=== PATIENT | male | born 1975 | race Caucasian/White ===

== ENCOUNTER 2018-05-09 13:01 | Emergency (ER) | payer BC ==
[2018-05-09 13:33] VITALS: BP 120/84
--- NOTE | 2018-05-09 13:49 | UC ---
Abdominal Pain Male HPI - HPI Summary HPI Summary: FOR ABOUT ONE MONTH, RIGHT LOWER ABD COMPLAINT. STATES IT IS NOT REALLY PAINFUL BUT HE THINKS HE CAN FEEL A LUMP IN THE AREA. NO TESTICULAR PAIN. 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 - History of Current Complaint Chief Complaint: UCAbdominalPain Stated Complaint: RT SIDE ABD PAIN X 1 MONTH Time Seen by Provider: 05/09/18 13:41 Hx Obtained From: Patient Onset/Duration: Sudden Onset, Lasting Weeks Timing: Intermittent Episodes Lasting: Severity Initially: Mild Severity Currently: None Pain Intensity: 0 Location: Discrete At: RLQ Radiates: No Character: Not Applicable - does not describe it as pain. - Allergies/Home Medications Allergies/Adverse Reactions: Allergies Allergy/AdvReac Type Severity Reaction Status Date / Time nut - unspecified Allergy Severe Anaphylatic Verified 05/09/18 13:27 Shock Home Medications: Home Medications NK [No Home Medications Reported] 05/09/18 [History Confirmed 05/09/18] PMH/Surg Hx/FS Hx/Imm Hx Previously Healthy: Yes - Surgical History Surgical History: None - Family History Known Family History: Positive: Hypertension - Social History Alcohol Use: Occasionally Substance Use Type: None Smoking Status (MU): Never Smoked Tobacco Review of Systems All Other Systems Reviewed And Are Negative: Yes Constitutional: Positive: Negative Skin: Positive: Negative Eyes: Positive: Negative ENT: Positive: Negative Respiratory: Positive: Negative Cardiovascular: Positive: Negative Gastrointestinal: Positive: Negative, Abdominal Pain - occasional Genitourinary: Positive: Negative Motor: Positive: Negative Neurovascular: Positive: Negative Musculoskeletal: Positive: Negative Neurological: Positive: Negative Psychological: Positive: Negative Is Patient Immunocompromised?: No Physical Exam Triage Information Reviewed: Yes Appearance: Well-Appearing, No Pain Distress, Obese Vital Signs: Initial Vital Signs Temp 98 F 05/09/18 13:27 Pulse 65 05/09/18 13:27 Resp 16 05/09/18 13:27 BP 120/84 05/09/18 13:27 Pulse Ox 97 05/09/18 13:27 Vital Signs Reviewed: Yes Eye Exam: Normal ENT Exam: Normal Dental Exam: Normal Neck exam: Normal Neck: Positive: Supple, Nontender, No Lymphadenopathy Respiratory Exam: Normal Respiratory: Positive: Chest non-tender, Lungs clear, Normal breath sounds Cardiovascular Exam: Normal Cardiovascular: Positive: RRR, No Murmur, Pulses Normal Abdominal Exam: Normal Abdomen Description: Positive: Nontender, No Organomegaly, Soft, CVA Tenderness (R) - neg, CVA Tenderness (L) - neg, Hernia @ - possible hernia in the right upper inguinal area, no pain on palpation, small lump noted, Other: Bowel Sounds: Positive: Present Male Genital Exam: Positive: Normal Genitalia Musculoskeletal Exam: Normal Neurological Exam: Normal Psychological Exam: Normal Skin Exam: Normal Abd Pain Male Course/Dx - Course Course Of Treatment: hx obtained, exam performed ,meds reviewed, recommned further evaluation and follow up with his PCP - Differential Dx/Clinical Impression Differential Diagnosis/HQI/PQRI: Constipation, Other - hernia Provider Diagnosis: Hernia Discharge - Sign-Out/Discharge Documenting (check all that apply): Patient Departure All imaging exams completed and their final reports reviewed: No Studies - Discharge Plan Condition: Stable Disposition: HOME Referrals: Blu Londono MD [Primary Care Provider] - Additional Instructions: 1. i recommend follow up with your PCP so that further imaging can be completed. At this time you are in no pain and we cannot recreate the pain. 2. If severe pain develops please follow up immediately. - Billing Disposition and Condition Condition: STABLE Disposition: Home
== END 2018-05-09 14:13 | disposition home or self-care (01) ==
LOC: UCCORT 13:01
DX: K46.9 Unspecified abdominal hernia without obstruction or gangrene (principal); Z91.018 Allergy to other foods
CPT/HCPCS: 99201; G0463

== ENCOUNTER 2018-08-22 16:39 | Emergency (ER) | payer BC ==
[2018-08-22 16:59] VITALS: BP 138/95
--- NOTE | 2018-08-22 17:12 | UC ---
General HPI - HPI Summary HPI Summary: 1 WEEK HX OF A SORE THROAT AND COUGH WITH GREEN SPUTUM. NOW C/O R EAR PAIN WELL. NO FEVER, SOB, WHEEZING, HX COPD/ASTHMA. - History of Current Complaint Chief Complaint: UCRespiratory Stated Complaint: EAR PAIN Time Seen by Provider: 08/22/18 17:05 Hx Obtained From: Patient Onset/Duration: Gradual Onset Timing: Constant Pain Intensity: 8 Associated Signs & Symptoms: Positive: Cough. Negative: Chest Pain, Fever, SOB , Wheezing - Allergy/Home Medications Allergies/Adverse Reactions: Allergies Allergy/AdvReac Type Severity Reaction Status Date / Time nut - unspecified Allergy Severe Anaphylatic Verified 08/22/18 16:56 Shock PMH/Surg Hx/FS Hx/Imm Hx Previously Healthy: Yes - Surgical History Surgical History: None - Family History Known Family History: Positive: Hypertension - Social History Alcohol Use: Occasionally Substance Use Type: None Smoking Status (MU): Never Smoked Tobacco Review of Systems All Other Systems Reviewed And Are Negative: Yes ENT: Positive: Sore Throat, Ear Ache Respiratory: Positive: Cough Physical Exam Triage Information Reviewed: Yes Appearance: Well-Appearing Vital Signs: Initial Vital Signs Temp 98.2 F 08/22/18 16:57 Pulse 74 08/22/18 16:57 Resp 16 08/22/18 16:57 BP 138/95 08/22/18 16:57 Pulse Ox 99 08/22/18 16:57 Vital Signs Reviewed: Yes Eyes: Positive: Conjunctiva Clear ENT: Positive: Pharyngeal erythema, TMs normal - L, TM red - R, Other - no auricular adenopathy or mastoid tenderness.. Negative: Nasal congestion, Nasal drainage Neck: Positive: Supple, Nontender, No Lymphadenopathy Respiratory: Positive: Lungs clear, Normal breath sounds, No respiratory distress Cardiovascular: Positive: RRR, No Murmur Abdomen Description: Positive: Nontender, No Organomegaly, Soft Bowel Sounds: Positive: Present Musculoskeletal: Positive: ROM Intact Neurological: Positive: Alert Psychological: Positive: Age Appropriate Behavior Skin Exam: Normal Course/Dx - Differential Dx - Multi-Symptom Differential Diagnoses: Other - R OM on exam. will tx with augmentin which will cover the OM but also a bacterial pharyngitis and lungs - Diagnoses Provider Diagnosis: Otitis media Discharge - Sign-Out/Discharge Documenting (check all that apply): Patient Departure All imaging exams completed and their final reports reviewed: No Studies - Discharge Plan Condition: Stable Disposition: HOME Prescriptions: Amoxicillin/Clavulanate TAB* [Augmentin TAB 875*] 875 mg PO BID 10 Days #20 tab Patient Education Materials: Ear Infection (ED) Referrals: Blu Londono MD [Medical Doctor] - Additional Instructions: FOLLOW UP IF NOT BETTER IN 7 DAYS OR SOONER IF WORSE. - Billing Disposition and Condition Condition: STABLE Disposition: Home
== END 2018-08-22 17:22 | disposition home or self-care (01) ==
LOC: UCCORT 16:39
DX: H66.91 Otitis media, unspecified, right ear (principal)
CPT/HCPCS: 99212; G0463